=== PATIENT | female | born 1945 | race Caucasian/White ===

== ENCOUNTER → 2018-08-13 08:00 | Outpatient (CLI) | payer MEDICARE, BC ==
--- NOTE | 2018-08-16 17:10 | EC ---
PATIENT:PRECIOUS GILL DATE OF SERVICE: 08/13/18 SEX: F MEDICAL RECORD: [id number] DATE OF : [birth year] LOCATION:[facility] AGE OF PATIENT: 72 ADMISSION DATE: 08/13/18 REFERRING PHYSICIAN: INTERPRETING PHYSICIAN: MATTHEW MARTINES MD ECHOCARDIOGRAM REPORT ECHO CHARGES 4 ECHO COMPLETE Date: 08/13/18 CLINICAL DIAGNOSIS: DYSPNEA ECHOCARDIOGRAPHIC MEASUREMENTS (adult normal given) AC root (d.<3.7cm) 3.4 cm LV Septum d (<1.2 cm> 1.6 cm Valve Excursion 2.1 cm LV Septum (systole) 1.9 cm Left Atria (s.<4.0cm> 4.1 cm LVPW d(<1.2cm) 1.5 cm RV (d.<2.3cm) 2.7 cm LVPW (sytole) 2.3 cm LV diastole(<5.6CM) 5.5 cm MV E-F(>70mm/sec) cm LV systole 3.2 cm LVOT Diameter 2.0 cm MV exc.(>10mm) cm Est.ejection fraction (50-75%) % DOPPLER: LVIT cm/sec A 94.0 cm/sec E 60.0 cm/sec LA cm/sec RVSP 40.0 mmHg LVOT 116 cm/sec AOP1/2T m/s Asc. Ao 167 cm/sec RVOT 84.0 cm/sec RA cm/sec PA 121 cm/sec AV Gradient Peak 11.2 mmHg AV Mean 4.5 mmHg AV Area 2.8 cm MV Gradient Peak 6.4 mmHg MV Mean 1.8 mmHg MV Area cm COMMENTS: Emergency Vehicle Technician: Luciano ROUSEDSOE Security Coordinator: 1 Dr. Martines TAPE# PACS Pericardial Effusion N DATE OF SERVICE: 08/13/2018 FINDINGS: 1. Left ventricular chamber size is within normal limits. Left ventricular systolic function is normal. Overall ejection fraction estimated at 60%. 2. Left atrium is enlarged at 4.1 cm. Right atrium and right ventricular chamber sizes are within normal limits. 3. Valvular structures have normal structure and motion. 4. Doppler interrogation reveals mild tricuspid regurgitation, no other valvular insufficiency or stenosis. Pulmonary systolic pressure is estimated at ECHOCARDIOGRAM REPORT [id number] PRECIOUS GILL 40 mmHg. 5. No evidence of pericardial effusion or left ventricular thrombus. TRANSINT:[id number] Voice Confirmation ID: [id number] DOCUMENT ID: [id number] MATTHEW MARTINES MD at 1710 CC: [id number] DICTATION DATE: 08/14/18 1206 STEAM BRUSH OPERATOR: 08/14/18 1253 DEP CLI 08/13/18 [place] [id number] [place] [id number]
== END | disposition home or self-care (01) ==
LOC: D.RT 08:00
DX: R06.00 Dyspnea, unspecified (principal)